=== PATIENT | male | born 1960 | race Caucasian/White ===

== ENCOUNTER → 2019-06-25 08:21 | Outpatient (CLI) | payer OTHER, SELFPAY ==
--- NOTE | 2019-06-25 | DI.RAD.S_ITS ---
PROCEDURE: XR CHEST 2V INDICATIONS: MURMUR TECHNIQUE: 2 views of the chest were acquired. COMPARISON: None. FINDINGS: Surgical changes and devices: None. Lungs and pleura: Lungs are clear. No pleural effusions or pneumothorax. Mediastinum: Mediastinal contours are normal. Heart size is normal. Bones and chest wall: No suspicious bony abnormalities. Soft tissues appear unremarkable. IMPRESSION: Normal for age, source of current reported murmur is not seen. Dictated by: Dami Lopez M.D. on 06/25/2019 at 10:21 Approved by: Dami Lopez M.D. on 06/25/2019 at 10:21
== END ==
PROVIDERS: Visit Provider Student in an Organized Health Care Education/Training Program
DX: R01.1 Cardiac murmur, unspecified (principal)
CPT/HCPCS: 71046

== ENCOUNTER → 2019-07-06 06:49 | Outpatient (CLI) | payer OTHER, SELFPAY ==
--- NOTE | 2019-07-06 | DI.ECHO.S_ITS ---
[facility] +---------+ [facility] +---------+ : : [address] : : : : [id number] : : : : Phone: [phone]---------+ Echocardiogram Report + + :Name: CHUY RIDDLE Study Date: 07/06/2019 Height: 75 in : :[facility] Weight: 213 lb : : Gender: Male BSA: 2.3 m2 : :: 1960 Age: 59 yrs BP: 146/80 mmHg: :Reason For Study: MURMUR : : Performed By: Nancy Dejesus : :Referring: SHAZIA PHILLIP : + + Interpretation Summary The left ventricle is borderline dilated. The left ventricular ejection fraction is normal. The ejection fraction is estimated to be 55-60%. There are no focal wall motion abnormalities. Diastolic parameters suggest probable normal left ventricular diastolic function and normal filling pressures. The right ventricle is normal in size and function. Pulmonary artery pressures cannot be estimated because of the lack of a measurable TR jet velocity. The left atrium is severely dilated. The right atrium is mildly dilated. The mitral valve leaflets appear moderately thickened, but open well. There is mild mitral valve prolapse which apopears to be mostly involving the anterior MV leaflet. There is mild to moderate mitral regurgitation. The mitral regurgitant jet is eccentrically directed. There is no other significant valvular heart disease. The aortic root is mildly dilated. The ascending aorta is mildly enlarged. Procedure: A two-dimensional transthoracic echocardiogram with color flow and Doppler was performed. The study quality was technically adequate. There is no prior echocardiogram noted for this patient. The patient was in normal sinus rhythm during the exam. Left Ventricle: The left ventricle is borderline dilated. There is normal left ventricular wall thickness. The left ventricular ejection fraction is normal. The ejection fraction is estimated to be 55-60%. There are no focal wall motion abnormalities. Diastolic parameters suggest probable normal left ventricular diastolic function and normal filling pressures. Right Ventricle: The right ventricle is normal in size and function. Atria: The left atrium is severely dilated. The right atrium is mildly dilated. There is no Doppler evidence for an interatrial shunt. Mitral Valve: The mitral valve leaflets appear moderately thickened, but open well. There is mild mitral valve prolapse. There is mild to moderate mitral regurgitation. The mitral regurgitant jet is eccentrically directed. Aortic Valve: The aortic valve is normal in structure and function. There is trace aortic regurgitation. Tricuspid Valve: The tricuspid valve is normal. There is a trace or physiologic amount of tricuspid regurgitation. Pulmonary artery pressures cannot be estimated because of the lack of a measurable TR jet velocity. Pulmonic Valve: The pulmonic valve is not well seen, but is grossly normal. There is mild pulmonic regurgitation. There is no other significant valvular heart disease. Great Vessels: The aortic root is mildly dilated. The ascending aorta is mildly enlarged. The aortic arch is normal in size. The pulmonary artery is normal size. The IVC is of normal diameter and collapses greater than 50% with a sniff. This suggests a low right atrial pressure of 3 mm Hg. Pericardium/ Pleura There is no pericardial effusion. There is no pleural effusion. MMode/2D Measurements & Calculations LVIDd: 5.9 cm LVOT diam: 2.3 cm LVIDs: 3.6 cm Ao root diam: 4.2 cm FS: 38.4 % asc Aorta Diam: 3.8 cm EPSS: 1.1 cm Ao Arch Diam (Prox Trans): 2.5 cm IVSd: 0.90 cm LVPWd: 1.1 cm LV rodriguez. diameter/BSA (cm/m^2): 2.6 LV sys. diameter/BSA (cm/m^2): 1.6 LA A2 area: 31.0 cm2 RA long axis: 5.0 cm LA A4 area: 27.9 cm2 RA area: 21.1 cm2 LA length (vol): 6.1 cm RA vol: 75.6 ml LA vol: 120.4 ml RA : 33.6 ml/m2 LA vol index: 53.4 ml/m2 IVC diam: 2.0 cm RVD1 (basal): 4.2 cm RVD2 (mid): 3.8 cm TAPSE: 2.2 cm Doppler Measurements & Calculations Ao V2 max: 123.5 cm/sec LVOT Max Sage: 85.2 cm/sec Ao V2 mean: 84.6 cm/sec LV V1 max P.9 mmHg Ao max P.1 mmHg LV V1 VTI: 16.4 cm Ao mean P.2 mmHg NOREEN(I,D): 2.8 cm2 Ao V2 VTI: 24.9 cm NOREEN(V,D): 2.9 cm2 sev ratio: 0.66 NOREEN indexed to BSA (cm^2/m^2): 1.3 MV E max sage: 60.3 cm/sec PA V2 max: 78.9 cm/sec MV A max sage: 56.1 cm/sec PA V2 mean: 58.1 cm/sec MV E/A: 1.1 PA mean P.5 mmHg Med Peak E' Sage: 5.4 cm/sec PA Accel Time: 0.09 sec E/E' med: 11.2 Lat Peak E' Sage: 7.9 cm/sec E/E' lat: 7.6 E/e' average: 9.4 MV dec time: 0.23 sec SV([facility]): 70.1 ml Reading Physician:01:02 PM
== END ==
PROVIDERS: PCP Student in an Organized Health Care Education/Training Program; Visit Provider Student in an Organized Health Care Education/Training Program
DX: I34.0 Nonrheumatic mitral (valve) insufficiency (principal); I34.1 Nonrheumatic mitral (valve) prolapse; R01.1 Cardiac murmur, unspecified
CPT/HCPCS: 93306

== ENCOUNTER → 2021-01-31 13:53 | Outpatient (CLI) | payer OTHER, SELFPAY ==
--- NOTE | 2021-01-31 13:55 | DI.ECHO.S_ITS ---
[facility] +---------+ [facility] +---------+ : : [address] : : : : [id number] : : : : Phone: [phone]+ Echocardiogram Report + + :Name: CHUY RIDDLE Study Date: 01/31/2021 Height: 75 in : :[facility] ReadingLocation: Weight: 220 lb : : Gender: Male BSA: 2.3 m2 : :: 1960 Age: 60 yrs BP: 148/94 mmHg: :Reason For Study: ATRIOVENTRICULAR BLOCK, COMPLETE : :Ordering Physician: YOUSIF, : :CAPO Performed By: Gertrude Hayes : :Referring: CAPO JALLOH : + + Interpretation Summary The left ventricle is normal in size and wall thickness. Left ventricular systolic function appears normal without focal wall motion abnormalities. The ejection fraction is estimated to be 60-65%. There has been no significant change since the previous exam. Diastolic parameters suggest probable normal left ventricular diastolic function and normal filling pressures. The right ventricle is normal in size and function. Pulmonary artery pressures cannot be estimated because of the lack of a measurable TR jet velocity but the IVC suggests a CVP of around 8 mmHg. The left atrium is moderately dilated. The right atrium is borderline dilated. There is mild to moderate mitral regurgitation. Compared to the prior echo study, there has been no change in the severity of mitral regurgitation. The mitral regurgitant jet is eccentrically directed. There is prolapse of the anterior mitral valve leaflet. There is no other significant valvular heart disease. The aortic root is mildly dilated. The ascending aorta is mildly enlarged. Procedure: A two-dimensional transthoracic echocardiogram with color flow and Doppler was performed. The study quality was technically adequate. Comparison is made with the echocardiogram of 07/06/2019. The heart rate ranged between 57-68 bpm during the study. Left Ventricle: The left ventricle is normal in size and wall thickness. Left ventricular systolic function appears normal without focal wall motion abnormalities. The ejection fraction is estimated to be 60-65%. There has been no significant change since the previous exam. Diastolic parameters suggest probable normal left ventricular diastolic function and normal filling pressures. Right Ventricle: The right ventricle is normal in size and function. Atria: The left atrium is moderately dilated. The right atrium is borderline dilated. There is no Doppler evidence for an interatrial shunt. Mitral Valve: The mitral valve leaflets appear mildly thickened, but open well. There is prolapse of the anterior mitral valve leaflet. The mitral regurgitant jet is eccentrically directed. There is mild to moderate mitral regurgitation. Compared to the prior echo study, there has been no change in the severity of mitral regurgitation. Aortic Valve: The aortic valve is trileaflet. The aortic valve opens well. There is no aortic valve stenosis. There is trace aortic regurgitation. Tricuspid Valve: The tricuspid valve is normal in structure and function. There is trace tricuspid regurgitation. Pulmonary artery pressures cannot be estimated because of the lack of a measurable TR jet velocity but the IVC suggests a CVP of around 8 mmHg. Pulmonic Valve: The pulmonic valve leaflets are thin and pliable; valve motion is normal. There is mild pulmonic regurgitation. There is no other significant valvular heart disease. Great Vessels: The aortic root is mildly dilated. The ascending aorta is mildly enlarged. The IVC is of normal diameter and collapses less than 50% with a sniff. This suggests a right atrial pressure of 8 mm Hg. Pericardium/ Pleura There is no pericardial effusion. There is no pleural effusion. MMode/2D Measurements & Calculations LVIDd: 5.2 cm LVOT diam: 2.4 cm LVIDs: 3.4 cm Ao root diam: 4.1 cm FS: 34.3 % asc Aorta Diam: 3.6 cm IVSd: 1.2 cm Ao Arch Diam (Prox Trans): 2.9 cm LVPWd: 1.0 cm LV rodriguez. diameter/BSA (cm/m^2): 2.3 LV sys. diameter/BSA (cm/m^2): 1.5 LA A2 area: 27.4 cm2 RA long axis: 5.7 cm LA A4 area: 27.2 cm2 RA area: 22.6 cm2 LA length (vol): 5.7 cm RA vol: 76.3 ml LA vol: 110.9 ml RA : 33.4 ml/m2 LA vol index: 48.5 ml/m2 IVC diam: 2.1 cm RVD1 (basal): 2.8 cm TAPSE: 2.3 cm Doppler Measurements & Calculations Ao V2 max: 146.0 cm/sec LVOT Max Sage: 101.9 cm/sec Ao V2 mean: 98.8 cm/sec LV V1 max P.1 mmHg Ao max P.5 mmHg LV V1 VTI: 19.4 cm Ao mean P.4 mmHg NOREEN(I,D): 3.3 cm2 Ao V2 VTI: 27.5 cm NOREEN(V,D): 3.3 cm2 sev ratio: 0.71 NOREEN indexed to BSA (cm^2/m^2): 1.4 MV E max sage: 74.9 cm/sec PA pr(Accel): 27.6 mmHg MV A max sage: 56.4 cm/sec MV E/A: 1.3 Med Peak E' Sage: 6.2 cm/sec E/E' med: 12.0 Lat Peak E' Sage: 14.1 cm/sec E/E' lat: 5.3 E/e' average: 8.7 MV dec time: 0.20 sec SV(LVOT): 90.8 ml Reading Physician:05:31 PM
== END ==
PROVIDERS: PCP Student in an Organized Health Care Education/Training Program; Referring Provider Internal Medicine Cardiovascular Disease; Visit Provider Internal Medicine Cardiovascular Disease
DX: I44.2 Atrioventricular block, complete (principal); I34.1 Nonrheumatic mitral (valve) prolapse; I77.810 Thoracic aortic ectasia
CPT/HCPCS: 93306

== ENCOUNTER → 2021-03-15 10:20 | Outpatient (CLI) | payer OTHER, SELFPAY ==
[2021-03-15 11:19] LABS: BUN Creatinine Ratio 21.2 (6-22); Blood Urea Nitrogen 21 mg/dL (9-20); Calcium 9.4 mg/dL (8.4-10.2); Carbon Dioxide 30 mmol/L (22-32); Chloride 104 mmol/L (98-107); Estimated Glomerular Filt Rate > 60.0 mL/min (>60); Glucose 102 mg/dL (80-110); HEMOLYSIS < 15 (0-50); Potassium 4.4 mmol/L (3.4-5.1); Sodium 141 mmol/L (137-145)
== END ==
PROVIDERS: PCP Student in an Organized Health Care Education/Training Program; Referring Provider Internal Medicine Cardiovascular Disease; Visit Provider Internal Medicine Cardiovascular Disease
DX: I10 Essential (primary) hypertension (principal)
CPT/HCPCS: 36415; 80048

== ENCOUNTER → 2022-05-16 09:10 | Outpatient (CLI) | payer OTHER, SELFPAY ==
[2022-05-16 11:02] LABS: COVID19 -Nasal RAPID Negative (Negative)
== END ==
PROVIDERS: PCP Student in an Organized Health Care Education/Training Program; Visit Provider Surgery
DX: Z20.822 Contact with and (suspected) exposure to COVID-19 (principal); Z01.812 Encounter for preprocedural laboratory examination
CPT/HCPCS: 87635; C9803

== ENCOUNTER 2022-05-17 07:26 | Day surgery (SDC) | payer OTHER, SELFPAY ==
--- NOTE | 2022-05-17 | PATH_ITS ---
[facility] Accession Number: [id number] No. of containers..01 Tissue . 01 Material submitted: . colon - DISTAL TRANSVERSE COLON POLYP . 01 Diagnosis: Distal Transverse Colon Polyp: Superficial portion of colorectal mucosa with a prominent benign lymphoid aggregate. Additional levels through the block are noncontributory. MRV 05/18/2022 1542 Local . 01 Electronically signed: . Genoveva Hawkins MD, Pathologist NPI- [id number] . 01 Gross description: . DISTAL TRANSVERSE COLON POLYP: Received in formalin is 1 fragment(s) of galvin, soft tissue measuring 0.3 x 0.3 x 0.2 cm submitted entirely in 1 cassette(s) /KIMBERLEY 05/17/2022 2212 Local . 01 Pathologist provided ICD-10: Z12.11 . 01 CPT . 418629 Specimen Comment: A courtesy copy of this report has been sent to [phone] Performed at: 01 [facility] [address] [place] [address] [address], [place], [place] [id number] MD Roberto Castellano MD Phone: [phone]
[2022-05-17 07:42] VITALS: BP 164/93; PULSE 77; RESP 12; TEMP 36.7; O2SAT 99; BMI 26.9
[2022-05-17] MEDS: LACTATED RINGERS 1,000 ML 42 ML IV (07:58)
--- NOTE | 2022-05-17 08:22 | PM.HP.1 ---
History of Present Illness History of Present Illness Date Patient Seen: 05/17/22 Time Patient Seen: 08:22 Chief complaint: SDC Narrative: Fernie is a 62-year-old man who is due for colonoscopy. Believes his last one was about 10 years ago. 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 Has mild obstructive sleep apnea and uses a CPAP primarily because he snores and wakes his . Patient History Family & Social History Social History: household members spouse Tobacco & Substance use: Smoking Status Never smoker alcohol intake current alcohol intake frequency 0-2 drinks per day Substance Use Type does not use Meds Home Medications and Allergies Home Medications Medication Instructions Recorded Confirmed Type Respironics Dreamstation CPAP #1 ea 02/10/19 08/11/19 History sodium sul 1.479 gram-potas ch See Rx Instructions PO PER PKG DIR 05/08/22 Rx 0.188 gram-magnes sul 0.225 gram #24 tabs tablet (Sutab) amlodipine 2.5 mg tablet mg 05/17/22 History atorvastatin 20 mg tablet mg 05/17/22 History lisinopril 40 mg tablet mg 05/17/22 History sodium sul 1.479 gram-potas ch tab PO 05/17/22 History 0.188 gram-magnes sul 0.225 gram tablet (Sutab) Allergies Allergy/AdvReac Type Severity Reaction Status Date / Time Penicillins Allergy Verified 05/17/22 07:50 Exam Vital Signs (past 8 hours): - 05/17/22 07:42 Temperature 98.1 F Pulse Rate 77 Respiratory Rate 12 Blood Pressure 164/93 H Pulse Oximetry 99 Oxygen Delivery Method Room Air Oxygen Delivery Method Room Air Const General: healthy appearing Resp Effort & Inspection: normal respiratory effort GI Palpation: soft Assessment & Plan Assessment and plan (1) Colon cancer screening: Status: Acute Plan 62-year-old man due for colonoscopy for colon cancer screening. We reviewed the risks and benefits and he would like to proceed. COVID-19 COVID-19 status: Negative Result date/Date tested (Pos, Neg/Pending): 05/16/22 Time Spent With Patient Critical Care time: I spent a total of [] minutes of critical care time on this patient's care today; this time is exclusive of procedural time.
[2022-05-17] MEDS: fentaNYL 250 MCG/5 ML INJ 150 MCG IV (08:37)
[2022-05-17] MEDS: MIDAZOLAM 5 MG/5 ML VIAL 7 MG IV (08:37)
--- NOTE | 2022-05-17 08:53 | PM.OP.COLON ---
Operative Date/Time/Diagnoses Date of procedure: 05/17/22 Time of procedure: 08:53 Pre-op diagnosis: Colon cancer screening Post-op diagnosis: same Procedure & Clinicians Study performed: Colonoscopy Same procedure as scheduled: Yes Surgeon: Dimitrios Camilo Procedure Notes Procedure in detail: Surgeon: Dimitrios Camilo MD Procedure: The patient was brought to the endoscopy suite, placed in left lateral decubitus position. The patient was connected to monitoring devices. A time-out was performed. Sedation was administered. Once the patient was adequately sedated, a digital rectal exam was performed and was normal. The scope was then inserted and advanced to the cecum where the appendiceal orifice was identified and photographed. The scope was then slowly withdrawn over greater than 6 minutes. The mucosa was thoroughly inspected. There was 1 small polyp in the distal transverse colon removed with cold forceps. The scope was retroflexed in the rectum. No abnormalities were noted. The scope was straightened and removed. The patient was awakened and brought to recovery. Versed: 7 mg Fentanyl: 150 mcg EBL: 5 mL Findings: 1 tiny polyp in the distal transverse colon Scope withdrawal time: 11 Sedation minutes: 21 Post-procedure Recommendations: Colonoscopy in 10 years and Will call with biopsy results Disposition: PACU
[2022-05-17 08:55] VITALS: BP 130/83; PULSE 68; RESP 10; TEMP 36.4; O2SAT 97
[2022-05-17 09:00] VITALS: BP 120/74; PULSE 71; RESP 20; O2SAT 98
[2022-05-17 09:06] VITALS: BP 130/74; PULSE 67; RESP 12; O2SAT 98
[2022-05-17 09:10] VITALS: BP 122/83; PULSE 66; RESP 17; TEMP 36.4; O2SAT 96
[2022-05-17 09:16] VITALS: BP 128/82; PULSE 67; RESP 14; O2SAT 97
--- NOTE | 2022-05-17 09:43 | SUR.PHASEII ---
0930: Discharge instructions reviewed with patient. Patient denies any distress and ready to discharge home. Left unit via W/C with volunteer assist to ER entrance where spouse will transport pt home.
== END 2022-05-17 09:30 | disposition home or self-care (01) ==
PROVIDERS: PCP Student in an Organized Health Care Education/Training Program; Referring Provider Surgery; Visit Provider Surgery
PROC: 0DJD8ZZ Inspection of Lower Intestinal Tract, Via Natural or Artificial Opening Endoscopic (ICD-10-PCS; CPT 45378; principal; 2022-05-17 08:30)
DX: Z12.11 Encounter for screening for malignant neoplasm of colon (principal)
CPT/HCPCS: 45380; 99152; J2250; J3010

== ENCOUNTER → 2023-03-26 07:57 | Outpatient (CLI) | payer OTHER, SELFPAY ==
--- NOTE | 2023-03-26 | DI.ECHO.S_ITS ---
[facility] +---------+ [facility] +---------+ : : [address] : : : : [id number] : : : : Phone: [phone] : [phone] +---------+ Echocardiogram Report + + :Name: CHUY RIDDLE Study Date: 03/26/2023 Height: 75 in : :[facility] ReadingLocation: Weight: 200 lb : : Gender: Male BSA: 2.2 m2 : :: 1960 Age: 62 yrs BP: 150/92 mmHg: :Reason For Study: PALPITATIONS : :Ordering Physician: YOUSIF, : :CAPO Performed By: Gertrude Hayes : :Referring: CAPO JALLOH : + + Interpretation Summary The left ventricle is normal in size. Left ventricular systolic function appears normal without focal wall motion abnormalities. The ejection fraction is estimated to be 60-65%. Diastolic parameters suggest probable normal left ventricular diastolic function and normal filling pressures. The right ventricle is normal in size and function. There is a pacemaker lead in the right ventricle. Pulmonary artery pressures cannot be estimated because of the lack of a measurable TR jet velocity. The left atrium is mildly dilated. Right atrial size is normal. There is moderate mitral regurgitation. The mitral regurgitant jet is eccentrically directed. There is prolapse of the anterior mitral valve leaflet. There is no other significant valvular heart disease. The aortic root is borderline dilated. The ascending aorta is mildly enlarged. Procedure: A two-dimensional transthoracic echocardiogram with color flow and Doppler was performed. The study quality was technically adequate. Comparison is made with the echocardiogram of 01/31/2021. The patient was in sinus rhythm with heart rates between 60-66 bpm during the exam. Left Ventricle: The left ventricle is normal in size. There is mild concentric left ventricular hypertrophy. Left ventricular systolic function appears normal without focal wall motion abnormalities. The ejection fraction is estimated to be 60-65%. Diastolic parameters suggest probable normal left ventricular diastolic function and normal filling pressures. Right Ventricle: The right ventricle is normal in size and function. There is a pacemaker lead in the right ventricle. Atria: The left atrium is mildly dilated. Right atrial size is normal. There is a catheter/pacemaker lead seen in the right atrium. There is no Doppler evidence for an interatrial shunt. Mitral Valve: The mitral valve leaflets appear mildly thickened, but open well. There is mild mitral annular calcification. There is prolapse of the anterior mitral valve leaflet. There is moderate mitral regurgitation. The mitral regurgitant jet is eccentrically directed. Aortic Valve: The aortic valve is trileaflet. The aortic valve opens well. There is no aortic valve stenosis. Tricuspid Valve: The tricuspid valve is normal in structure and function. There is mild tricuspid regurgitation. Pulmonary artery pressures cannot be estimated because of the lack of a measurable TR jet velocity. Pulmonic Valve: The pulmonic valve leaflets are thin and pliable; valve motion is normal. There is mild pulmonic regurgitation. There is no other significant valvular heart disease. Great Vessels: The aortic root is borderline dilated. The ascending aorta is mildly enlarged. The IVC is dilated (diameter is greater than 2.1 cm) yet it collapses greater than 50% with a sniff. This suggests a right atrial pressure of 8 mm Hg. Pericardium/ Pleura There is no pericardial effusion. There is no pleural effusion. MMode/2D Measurements & Calculations LVIDd: 5.8 cm LVOT diam: 2.5 cm LVIDs: 4.4 cm Ao root diam: 4.1 cm FS: 24.9 % asc Aorta Diam: 3.8 cm IVSd: 0.97 cm Ao Arch Diam (Prox Trans): 2.4 cm LVPWd: 1.3 cm LV rodriguez. diameter/BSA (cm/m^2): 2.6 LV sys. diameter/BSA (cm/m^2): 2.0 LA A2 area: 29.4 cm2 RA long axis: 5.1 cm LA A4 area: 18.8 cm2 RA area: 17.9 cm2 LA length (vol): 5.2 cm RA vol: 53.0 ml LA vol: 89.5 ml RA : 24.1 ml/m2 LA vol index: 40.8 ml/m2 IVC diam: 2.2 cm RVD1 (basal): 3.9 cm RVD2 (mid): 3.4 cm TAPSE: 2.3 cm Doppler Measurements & Calculations Ao V2 max: 148.2 cm/sec LVOT Max Sage: 79.5 cm/sec Ao V2 mean: 107.7 cm/sec LV V1 max P.5 mmHg Ao max P.8 mmHg LV V1 VTI: 16.6 cm Ao mean P.2 mmHg NOREEN(I,D): 2.7 cm2 Ao V2 VTI: 30.3 cm NOREEN(V,D): 2.7 cm2 sev ratio: 0.55 NOREEN indexed to BSA (cm^2/m^2): 1.2 MV E max sage: 73.2 cm/sec PA V2 max: 105.0 cm/sec MV A max sage: 61.3 cm/sec PA V2 mean: 67.4 cm/sec MV E/A: 1.2 PA mean P.2 mmHg Med Peak E' Sage: 6.1 cm/sec PA pr(Accel): 24.2 mmHg E/E' med: 12.0 Lat Peak E' Sage: 12.5 cm/sec E/E' lat: 5.9 E/e' average: 8.9 MV dec time: 0.28 sec SV(LVOT): 83.0 ml Reading Physician:03:40 PM
== END ==
LOC: ECHO 07:58
PROVIDERS: PCP Family Medicine; Referring Provider Internal Medicine Cardiovascular Disease; Visit Provider Internal Medicine Cardiovascular Disease
DX: I08.1 Rheumatic disorders of both mitral and tricuspid valves (principal); I77.89 Other specified disorders of arteries and arterioles; R00.2 Palpitations; Z95.0 Presence of cardiac pacemaker
CPT/HCPCS: 93306

== ENCOUNTER → 2024-12-10 11:07 | Outpatient (ROUT) | payer OTHER, SELFPAY ==
[2024-12-10 11:47] LABS: Influenza A - CEPHEID Flu A POSITIVE (NEGATIVE); Influenza B - CEPHEID Flu B NEGATIVE (NEGATIVE); Respiratory Syncytial Virus Negative (Negative)
[2024-12-10 12:07] LABS: COVID-19 CEPHEID 4-PLEX PCR Negative (Negative)
== END ==
PROVIDERS: PCP Family Medicine; Visit Provider Family Medicine
DX: R05.1 Acute cough (principal); R09.81 Nasal congestion
CPT/HCPCS: 0241U

== ENCOUNTER → 2025-05-26 13:39 | Outpatient (CLI) | payer BC, SELFPAY ==
--- NOTE | 2025-05-26 13:45 | DI.RAD.S_ITS ---
PROCEDURE: XR KNEE LT 1TO2V INDICATIONS: ONGOING KNEE PAIN TECHNIQUE: Two views of the left knee were acquired. COMPARISON: None. FINDINGS: Bones: There are no osseous abnormalities. Joints: Moderate patellofemoral and medial tibial femoral degeneration appreciated. Small effusion noted. A 5 mm loose body overlies the medial tibial femoral joint Soft tissues: Normal IMPRESSION: Moderate degeneration. Small effusion. 5 mm loose body medial tibial femoral joint Dictated by: Ervin Thibodeaux M.D. on 05/27/2025 at 11:10 Approved by: Ervin Thibodeaux M.D. on 05/27/2025 at 11:11
== END ==
PROVIDERS: PCP Family Medicine; Referring Provider Family Medicine; Visit Provider Family Medicine
DX: M17.12 Unilateral primary osteoarthritis, left knee (principal); M25.462 Effusion, left knee; M23.42 Loose body in knee, left knee; M25.562 Pain in left knee; G89.29 Other chronic pain
CPT/HCPCS: 73560

== ENCOUNTER → 2025-09-06 10:38 | Outpatient (CLI) | payer BC, SELFPAY ==
--- NOTE | 2025-09-06 10:39 | DI.ECHO.S_ITS ---
[facility] : : [address] : : [place] : : [id number] : : Phone: [phone] Echocardiogram Report + + :Name: CHUY RIDDLE Study Date: 09/06/2025 Height: 74 in : :[facility] ReadingLocation: Weight: 218 lb : : Gender: Male BSA: 2.3 m2 : :: 1960 Age: 65 yrs BP: 151/83 mmHg: :Reason For Study: Mitral Valve- Prolapse : :Ordering Physician: YOUSIF, : :CAPO Performed By: Joyce Sood : :Referring: CAPO JALLOH : + + Interpretation Summary The left ventricle is mildly dilated. The ejection fraction is estimated to be 55-60%. Normal diastolic function. The right ventricle grossly appears normal in size with probable normal systolic function. There is a pacemaker lead in the right ventricle. The right ventricular systolic pressure is estimated to be at least 19 mmHg based on an estimated right atrial pressure of 3 mm Hg. The left atrium is moderately dilated. There is prolapse of the anterior mitral valve leaflet. There is moderate to severe mitral regurgitation. The aortic root is mildly dilated. The ascending aorta is mildly enlarged. Procedure: A two-dimensional transthoracic echocardiogram with color flow and Doppler was performed. The study quality was technically adequate. Comparison is made with the echocardiogram of 03-26-23. The heart rate ranged between 66-70 bpm during the study. Left Ventricle: The left ventricle is mildly dilated. There is normal left ventricular wall thickness. The ejection fraction is estimated to be 55-60%. Left ventricular wall motion is normal. Normal diastolic function. Right Ventricle: The right ventricle grossly appears normal in size with probable normal systolic function. There is a pacemaker lead in the right ventricle. Atria: The left atrium is moderately dilated. Right atrial size is normal. The interatrial septum grossly appears intact with no obvious evidence for an atrial septal defect. Mitral Valve: The mitral valve leaflets appear moderately thickened. There is prolapse of the anterior mitral valve leaflet. There is moderate to severe mitral regurgitation. Aortic Valve: The aortic valve is trileaflet. The aortic valve opens well. There is no aortic valve stenosis. There is trace aortic regurgitation. Tricuspid Valve: The tricuspid valve leaflets are thin and pliable. There is a trace or physiologic amount of tricuspid regurgitation. The right ventricular systolic pressure is estimated to be at least 19 mmHg based on an estimated right atrial pressure of 3 mm Hg. Pulmonic Valve: The pulmonic valve is not well seen, but is grossly normal. There is mild pulmonic regurgitation. Great Vessels: The aortic root is mildly dilated. The ascending aorta is mildly enlarged. The aortic arch is normal in size. The IVC is of normal diameter and collapses greater than 50% with a sniff. This suggests a low right atrial pressure of 3 mm Hg. Pericardium/ Pleura There is no pericardial effusion. There is no pleural effusion. MMode/2D Measurements & Calculations LVIDd: 6.0 cm LVOT diam: 2.7 cm LVIDs: 4.5 cm Ao root diam: 4.3 cm FS: 24.0 % asc Aorta Diam: 3.9 cm IVSd: 1.0 cm Ao Arch Diam (Prox Trans): 2.9 cm LVPWd: 0.07 cm LV rodriguez. diameter/BSA (cm/m^2): 2.6 LV sys. diameter/BSA (cm/m^2): 2.0 LA A2 area: 26.1 cm2 RA long axis: 5.3 cm LA A4 area: 26.4 cm2 RA area: 20.8 cm2 LA length (vol): 5.9 cm RA vol: 70.3 ml LA vol: 99.4 ml RA : 31.2 ml/m2 LA vol index: 44.1 ml/m2 IVC diam: 1.5 cm RVD1 (basal): 3.4 cm TAPSE: 2.8 cm Doppler Measurements & Calculations Ao V2 max: 178.8 cm/sec LVOT Max Sage: 97.7 cm/sec Ao V2 mean: 125.8 cm/sec LV V1 max P.8 mmHg Ao max P.8 mmHg LV V1 VTI: 20.7 cm Ao mean P.1 mmHg NOREEN(I,D): 3.3 cm2 Ao V2 VTI: 35.5 cm NOREEN(V,D): 3.1 cm2 sev ratio: 0.58 NOREEN indexed to BSA (cm^2/m^2): 1.5 MV E max sage: 89.1 cm/sec TR max sage: 199.8 cm/sec MV A max sage: 75.9 cm/sec TR max P.0 mmHg MV E/A: 1.2 PA V2 max: 77.5 cm/sec Med Peak E' Sage: 5.9 cm/sec PA V2 mean: 54.8 cm/sec E/E' med: 15.2 PA mean P.3 mmHg Lat Peak E' Sage: 12.0 cm/sec PA pr(Accel): -1.9 mmHg E/E' lat: 7.4 E/e' average: 11.3 MV dec time: 0.18 sec MR ERO: 0.22 cm2 Pulm A Revs Sage: 52.7 cm/sec MR PISA: 3.7 cm2 MR flow rate: 135.9 cm3/sec MR PISA radius: 0.77 cm SV(LVOT): 116.8 ml Reading Physician:09:19 PM
== END ==
PROVIDERS: PCP Family Medicine; Referring Provider Family Medicine; Visit Provider Internal Medicine Cardiovascular Disease
DX: I34.1 Nonrheumatic mitral (valve) prolapse (principal); I34.0 Nonrheumatic mitral (valve) insufficiency; I37.1 Nonrheumatic pulmonary valve insufficiency; I77.810 Thoracic aortic ectasia; I77.89 Other specified disorders of arteries and arterioles; Z95.0 Presence of cardiac pacemaker
CPT/HCPCS: 93306